=== PATIENT | female | born 1990 | race Caucasian/White ===

== ENCOUNTER 2024-03-22 09:04 | Day surgery (SDC) | payer MEDICARE, OTHER ==
[2024-03-15 14:30] VITALS: BMI 42.6
[2024-03-22 09:40] VITALS: PULSE 82; TEMP 97.3
[2024-03-22] MEDS ORDERED: PROPOFOL 120 ML ONE (10:26)
[2024-03-22 11:31] VITALS: RESP 18
[2024-03-22 11:39] VITALS: BP 131/74
== END 2024-03-22 11:41 | disposition home or self-care (01) ==
LOC: FASU-ENDO 09:04
PROVIDERS: ATTEND Internal Medicine Gastroenterology
PROC: 0DBL8ZX Excision of Transverse Colon, Via Natural or Artificial Opening Endoscopic, Diagnostic (ICD-10-PCS; 2024-03-22)
PROC: 0DBP8ZX Excision of Rectum, Via Natural or Artificial Opening Endoscopic, Diagnostic (ICD-10-PCS; 2024-03-22)
PROC: 0DBM8ZX Excision of Descending Colon, Via Natural or Artificial Opening Endoscopic, Diagnostic (ICD-10-PCS; 2024-03-22)
PROC: 0DB98ZX Excision of Duodenum, Via Natural or Artificial Opening Endoscopic, Diagnostic (ICD-10-PCS; 2024-03-22)
PROC: 0DB78ZX Excision of Stomach, Pylorus, Via Natural or Artificial Opening Endoscopic, Diagnostic (ICD-10-PCS; 2024-03-22)
PROC: 0DB68ZX Excision of Stomach, Via Natural or Artificial Opening Endoscopic, Diagnostic (ICD-10-PCS; 2024-03-22)
PROC: 0DB48ZX Excision of Esophagogastric Junction, Via Natural or Artificial Opening Endoscopic, Diagnostic (ICD-10-PCS; 2024-03-22)
PROC: 0DBK8ZX Excision of Ascending Colon, Via Natural or Artificial Opening Endoscopic, Diagnostic (ICD-10-PCS; principal; 2024-03-22 10:31)
DX: K64.1 Second degree hemorrhoids (principal); K64.8 Other hemorrhoids; K29.50 Unspecified chronic gastritis without bleeding; K44.9 Diaphragmatic hernia without obstruction or gangrene; K21.00 Gastro-esophageal reflux disease with esophagitis, without bleeding; K22.70 Barrett's esophagus without dysplasia
CPT/HCPCS: 81025; 88305-TC; 88342-TC